=== PATIENT | female | born 1975 | race Hispanic/Latino ===

== ENCOUNTER 2020-06-03 10:38 | Emergency (ER) | payer SELFPAY ==
[2020-06-03] MEDS ORDERED: Ketorolac Tromethamine 30 MG/ML VIAL ONE (12:29)
== END 2020-06-03 13:35 | disposition home or self-care (01) ==
LOC: CSHERS 10:38
DX: S39.012A Strain of muscle, fascia and tendon of lower back, initial encounter (principal); X50.0XXA Overexertion from strenuous movement or load, initial encounter
CPT/HCPCS: 96372; 99283; J1885

== ENCOUNTER 2021-06-27 08:30 | Emergency (ER) | payer SELFPAY ==
[2021-06-27 15:22] LABS: SARS-CoV-2 PCR by NAA Not Detected (NotDetected)
== END 2021-06-27 10:14 | disposition home or self-care (01) ==
LOC: CSHERS 08:30
DX: J02.9 Acute pharyngitis, unspecified (principal); Z20.822 Contact with and (suspected) exposure to COVID-19
CPT/HCPCS: 71045; 87804; U0003; U0005

== ENCOUNTER 2022-03-08 16:37 | Emergency (ER) | payer SELFPAY ==
[2022-03-08] MEDS ORDERED: hydrOXYzine 25 MG TAB ONE (18:03)
[2022-03-08 18:14] LABS: Bilirubin Neg (Negative); Blood, Urine 25 (Negative); Clarity Clear (Clear); Glucose, Urine (Dipstick) Normal (Negative); Ketone, Urine 15 mg/dL (Negative); Leukocyte Negative (Negative); Nitrite Negative (Negative); Protein, Urine (Dipstick) Negative (Neg-Trace); Urobilinogen Normal mg/dL (Less than 2)
[2022-03-08 18:29] LABS: RBC/HPF 0-3 HPF (0-3); Squamous Epithelial 0-3 HPF (0-3); WBC/HPF None Seen HPF (0-3)
[2022-03-08 18:30] LABS: Bacteria/HPF Rare-Few HPF (None Seen)
== END 2022-03-08 19:00 | disposition home or self-care (01) ==
LOC: CSHERS 16:37
DX: F41.0 Panic disorder [episodic paroxysmal anxiety] (principal); R07.9 Chest pain, unspecified
CPT/HCPCS: 81003; 81015; 93005

== ENCOUNTER 2023-03-25 13:22 | Emergency (ER) | payer SELFPAY ==
[2023-03-25 14:27] LABS: #Basophils 0.1 10x3/uL (0.0-0.2); #Eosinphils 0.1 10x3/uL (0.0-0.5); #Monocytes 0.6 10x3/uL (0.0-1.1); #Neutrophils 7.4 10x3/uL (1.5-8.4); %Basophils 0.5 % (0.0-2.0); %Eosinophils 0.9 % (0.0-6.0); %Monocytes 6.1 % (0.0-10.0); %Neutrophils 73.2 % (40.0-75.0); Hemoglobin 12.9 g/dL (12.0-15.5); Mean Corpuscular HGB CONC 33.9 g/dL (32.0-36.0); Mean Corpuscular Hemoglobin 31.8 pg (27.0-33.0); Mean Corpuscular Volume 93.6 fl (81.6-98.3); Mean Platelet Volume 9.4 fl (7.4-10.4); Platelet Count 388 10x3/uL (150-450); RBC Distribution Width 13.1 % (11.5-14.5); Red Blood Cell (RBC) Count 4.06 10x6/uL (3.90-5.03); White Blood Cell (WBC) Count 10.1 10x3/uL (3.5-10.5)
[2023-03-25 14:50] LABS: ALT (SGPT) 27 U/L (8-55); AST (SGOT) 17 U/L (5-34); Albumin 4.7 g/dL (3.5-5.0); Alkaline Phosphatase 54 U/L (40-110); Anion Gap 14 mmol/L (10-20); BUN (Urea Nitrogen) 16 mg/dL (7.0-18.7); Bilirubin, Total 0.3 mg/dL (0.2-1.2); Calc. Creatinine Clearance 0 mL/min (70-130); Calcium 9.6 mg/dL (7.8-10.44); Carbon Dioxide 27 mmol/L (22-29); Chloride 105 mmol/L (98-107); Estimated GFR 108; Globulin 2.8 g/dL (2.4-3.5); Glucose 96 mg/dL (70-105); Potassium 3.6 mmol/L (3.5-5.1); Protein, Total 7.5 g/dL (6.0-8.3); Sodium 142 mmol/L (136-145)
[2023-03-25 14:58] LABS: Troponin I Less than 0.010 ng/mL (< 0.028)
[2023-03-25] MEDS ORDERED: Morphine 4 MG/ML VIAL ONE (18:10)
[2023-03-25] MEDS ORDERED: Ketorolac Tromethamine 30 MG (1 mL) VIAL ONE (18:11)
== END 2023-03-25 19:34 | disposition home or self-care (01) ==
LOC: CSHERS 13:22
DX: R07.89 Other chest pain (principal)
CPT/HCPCS: 36415; 71045; 80053; 84484; 85025; 85379; 93005; 96372; 96374; J1885; J2270

== ENCOUNTER 2023-09-02 12:20 | Emergency (ER) | payer SELFPAY | END 2023-09-02 13:30 | disposition home or self-care (01) | LOC: CSHERS 12:20 | DX: J06.9 Acute upper respiratory infection, unspecified (principal); Z55.6 Problems related to health literacy | CPT/HCPCS: 71046 ==